=== PATIENT | male | born 1945 | race Caucasian/White ===

== ENCOUNTER 2020-09-19 03:41 | Inpatient (IN) | payer MEDICARE, OTHER, SELFPAY ==
[2020-09-19] VITALS (38 sets, daily range): BP systolic 85–148; BP diastolic 53–91; PULSE 64–83; RESP 6–28; TEMP 35.8–37.1; O2SAT 96–100; BMI 27.2
--- NOTE | ~2020-09-19 | XR_ITS ---
XR chest 1V portable DATE: 09/19/2020 04:18 INDICATION: STEMI TECHNIQUE: Portable AP chest on 09/19/2020 at 0404 hours COMPARISON: 01/11/2006 portable AP chest FINDINGS: Patchy bilateral pulmonary infiltrates are noted. There is a rounded approximately 2.5 cm opacity overlying the left midlung; pulmonary mass lesion is not excluded. Status post sternotomy. Heart size appears normal. Aortic arch calcification. No pleural effusion or pneumothorax. Diffuse osteopenia. IMPRESSION: Patchy bilateral pulmonary infiltrates 2.5 cm mass in the mid left lung field is not excluded. Reviewed, dictated and finalized at location A.
--- NOTE | 2020-09-19 03:49 | ECG_ITS ---
Measurements Intervals [place] Rate: 78 P: 85 GA: 288 QRS: 42 QRSD: 109 T: 95 QT: 375 QTc: 428 Interpretive Statements SINUS RHYTHM WITH FIRST DEGREE AV BLOCK INFERIOR ST ELEVATION MYOCARDIAL INFARCT- ACUTE POSTERIOR INFARCT- ACUTE BASELINE ARTIFACT- V1 ABNORMAL ECG Electronically Signed On 09-19-2020 8:43:36 CDT by Van Tom D.O.
[2020-09-19] MEDS: TICAGRELOR 90 MG TABLET 180 MG PO (04:04)
--- NOTE | 2020-09-19 04:04 | PC.NURSE ---
Sai notified rags laborer and Dr. Patten called for STEMI alert at [id number]
[2020-09-19 04:08] LABS: Basophils Percent Auto 0.5 % (0.2-1.2); Eosinophils Absolute Auto 0.2 K/mm3 (0-0.3); Eosinophils Percent Auto 3.5 % (0-4.4); Hematocrit 47.4 % (42.0-52.0); Hemoglobin 15.5 g/dL (14.0-18.0); Immature Granulocyte Absolute 0.03 K/mm3 (0.00-0.031); Immature Granulocyte Percent A 0.5 % (0-0.5); Lymphocytes Percent Auto 21.6 % (18.3-44.2); Mean Corpuscular HGB Conc 32.7 g/dl (32-36); Mean Corpuscular Hemoglobin 29.5 pg (26-34); Mean Corpuscular Volume 90.1 fl (80-100); Mean Platelet Volume 11.9 fl (7.4-10.4); Monocytes Absolute Auto 0.7 K/mm3 (0.1-0.6); Monocytes Percent Auto 11.1 % (2.6-8.5); Neutrophils Absolute Auto 3.8 K/mm3 (1.3-6.7); Neutrophils Percent Auto 62.8 % (45.5-73.1); Platelet Count Result 159 k/mm3 (150-375); Red Blood Count 5.26 M/mm3 (4.6-6.20); Red Cell Distribution Width 13.1 % (11.5-14.5)
[2020-09-19 04:19] LABS: Prothrombin Time 13.3 Seconds (11.1-14.7)
[2020-09-19 04:20] LABS: Alanine Aminotransferase 24 U/L (4-50); Alkaline Phosphatase 83 U/L (38-126); Anion Gap 2 mmol/L (8-16); Aspartate Amino Transferase 24 U/L (17-59); Bilirubin,Total 0.3 mg/dL (0.2-1.3); Blood Urea Nitrogen 17 mg/dL (9-20); Calcium 9.4 mg/dL (8.4-10.2); Carbon Dioxide 36 mmol/L (22-30); Chloride 103 mmol/L (98-107); Cholesterol 142 mg/dL (0-200); Estimated CRCL calculation 58 ml/min; Estimated Glomerular Filt Rate > 60; Glucose 115 mg/dL (75-110); HDL Direct 43 mg/dL; Partial Thromboplastin Time 25.2 SECONDS (22.3-36.8); Potassium 4.7 mmol/L (3.4-5.0); Sodium 141 mmol/L (137-145); Triglycerides 117 mg/dL (<150)
--- NOTE | 2020-09-19 04:23 | PC.NURSE ---
Patient resting comfortably in room on stretcher. Patient denies any complaints at this time. Patient has SO with him at the bedside. Awaiting cath team arrival.
--- NOTE | 2020-09-19 04:25 | ED.CHESTPAIN ---
HPI - Chest Pain General Chief Complaint: Chest Pain Stated Complaint: chest pain Time Seen by Provider: 09/19/20 03:44 History of Present Illness HPI narrative: Patient is a 75-year-old male who presents ER with sudden onset chest pain. Woke him from sleep around 2 AM. Pressure and was associated with diaphoresis. Reports pain has started radiating into his back and so he opted to come in. Patient has history of coronary artery bypass grafting 2003 as well as mitral valve repair. He is not on any blood thinners or antiplatelet medications. Denies nausea/vomiting/shortness of breath. Reports he did some new exercises today but was not having chest pain at that time. Patient does report new cough starting today with no fevers or chills. He has been fully vaccinated against Covid. Headrig Sawyer is Dr. Calixto Saenz. CV Surgeon is Dr. Reese. Related Data Home Medications Medication Instructions Recorded Confirmed aspirin [Adult Aspirin] 81 mg PO HS 09/19/20 09/19/20 atorvastatin 80 mg PO DAILY 09/19/20 09/19/20 cetirizine [Zyrtec] 10 mg PO DAILY 09/19/20 09/19/20 fluticasone propionate [Flonase] 1 spray INTRANASAL HS 09/19/20 09/19/20 metoprolol succinate 50 mg PO DAILY 09/19/20 09/19/20 Allergies Allergy/AdvReac Type Severity Reaction Status Date / Time Sulfa (Sulfonamide Allergy Mild Unknown Verified 09/19/20 04:04 Antibiotics) Penicillins Allergy Unknown Unknown Verified 09/19/20 04:04 thymerisol Allergy Intermediate Unknown Uncoded 09/19/20 04:00 PCN Allergy Mild Unknown Uncoded 09/19/20 04:00 Review of Systems Review of Systems: All systems reviewed & are unremarkable except as noted in HPI and below Constitutional: Constitutional: Denies fever(s) Comments: diaphoresis Cardiovascular: Cardiovascular: Reports chest pain, Denies rapid heart rate and Reports radiating jaw, neck or arm pain Respiratory: Respiratory: Reports cough, Denies dyspnea and Denies wheezing Gastrointestinal: Gastrointestinal: Denies abdominal pain, Denies nausea and Denies vomiting COUNTS INCLUDE 234 BEDS AT THE [facility] Past Medical History Medical History (Updated 09/19/20 @ 06:55 by Calixto Suarez MD) Coronary artery disease Hypertension Interstitial lung disease Surgical History Surgical History (Updated 09/19/20 @ 04:28 by Calixto Suarez MD) History of mitral valve repair Hx of CABG Social History Social History (Updated 09/19/20 @ 04:29 by Calixto Suarez MD) Smoking status: Never smoker Alcohol intake: current Drinks per week: 2 Substance use: never Gender identity (if verbalized by the patient): Male Spiritual care concerns: No Exam Narrative: Exam Narrative: GENERAL: Well-appearing, well-nourished, and in no acute distress. HEAD: Normocephalic, atraumatic. ENT: Mucous membranes moist. CHEST: Clear to auscultation. No respiratory distress. HEART: Regular rate and rhythm. Normal peripheral pulses. ABDOMEN: Soft, nontender, nondistended. EXTREMITIES: Normal range of motion. No edema. SKIN: Warm, dry, no rash. NEURO: Alert and oriented x3. PSYCH: Normal mood and affect. Course Course Emergency Course: STEMI activated upon EKG being performed. Dr. Patten contacted. Request Brilinta being given in addition to aspirin and heparin. Patient stable. Discussed abnormal chest x-ray with patient. He reports he has some chronic glassy appearance to his lungs. He does not think he has a lung nodule. Discussed this will likely require further work-up but not part of his issue at this time. Reevaluation(s) Reevaluation #1: Cath team at bedside to take patient upstairs. Date: 09/19/20 Time: 04:40 Vital Signs Vital signs: Vital Signs Pulse Rate 78 09/19/20 03:44 Respiratory Rate 16 09/19/20 03:44 Blood Pressure 148/87 H 09/19/20 03:44 Pulse Oximetry 100 09/19/20 03:44 Temperature 97.5 F L 09/19/20 06:06 Pulse Rate 73 09/19/20 06:06 Respiratory Rate 14 09/19/20 06:06 Blood Pressure 109/73
[2020-09-19 04:31] LABS: LDL Cholesterol Direct 71 mg/dL
[2020-09-19 04:38] LABS: Troponin I 0.049 ng/mL (0.000-0.034)
--- NOTE | 2020-09-19 05:57 | ADMGEN ---
This patient, Сергей Carballo, was admitted to Intensive Care Unit-10. Patient/family oriented to hospital policies and general routines including ID bracelet, bed and alarms, visiting hours, pain management, procedures, bathroom and other care routines, personal items, smoking policy, room service/diet, and visiting hours. Information on how to activate the Rapid Response Team has been discussed. Patient/Family are encouraged to report perceived risks to care and to ask questions if they do not understand what they are told or what they should do.
--- NOTE | 2020-09-19 05:59 | ECG_ITS ---
Measurements Intervals [place] Rate: 73 P: -31 [place]: 208 QRS: -3 QRSD: 100 T: -30 QT: 397 QTc: 438 Interpretive Statements SINUS RHYTHM INFERIOR INFARCT, AGE INDETERMINATE BORDERLINE ST ABNORMALITY- HIGH LATERAL LEADS ABNORMAL ECG Electronically Signed On 09-19-2020 17:01:13 CDT by Van Tom D.O.
--- NOTE | 2020-09-19 06:02 | PM.IMHP ---
H&P: HPI History of Present Illness Date/Time: 09/19/20 06:02 Chief Complaint: chest pain Narrative: this is a 75-year-old man on known to me prior to this encounter he came to [facility] in the middle of the night with chest pain that began at about 2:00 a.m. awakening from sleep with a pressure-like central substernal discomfort. Upon arrival to the emergency room he was found to have ECG findings of acute inferior wall injury and emergency angiography and revascularization have been room requested. I am seeing him as he is being prepared for emergency angiography in the cardiac mill laborer. He appears to be relatively comfortable but is reporting moderate retrosternal chest pressure. ECG shows ST elevation inferiorly with reciprocal precordial depression. Apparently he has a history of coronary and valvular heart disease with a previous mitral valve repair and single-vessel bypass at [facility] 15 years ago. I have no records of any of that at the time of this dictation. Review of Systems Review of Systems: ROS unobtainable: Yes unobtainable due to medical condition PMFSH Past Medical History Medical History (Updated 09/19/20 @ 04:31 by Calixto Suarez MD) Coronary artery disease Hypertension Surgical History Surgical History (Updated 09/19/20 @ 04:28 by Calixto Suarez MD) History of mitral valve repair Hx of CABG Social History Social History (Updated 09/19/20 @ 04:29 by Calixto Suarez MD) Smoking status: Never smoker Meds Home Medications and Allergies Allergies Allergy/AdvReac Type Severity Reaction Status Date / Time Sulfa (Sulfonamide Allergy Mild Unknown Verified 09/19/20 04:04 Antibiotics) Penicillins Allergy Unknown Unknown Verified 09/19/20 04:04 thymerisol Allergy Intermediate Unknown Uncoded 09/19/20 04:00 PCN Allergy Mild Unknown Uncoded 09/19/20 04:00 Vital Signs Vital Signs - 24 hr 09/19/20 03:44 09/19/20 03:47 09/19/20 03:48 Temperature Pulse Rate 78 80 77 Respiratory Rate 16 13 14 Blood Pressure 148/87 H 148/87 H Pulse Oximetry 100 100 100 09/19/20 03:58 09/19/20 04:00 09/19/20 04:01 Temperature Pulse Rate 83 82 Respiratory Rate 14 13 Blood Pressure 142/80 H Pulse Oximetry 100 100 100 09/19/20 04:15 09/19/20 04:16 09/19/20 04:46 Temperature 36.4 C Pulse Rate 81 80 78 Respiratory Rate 16 16 13 Blood Pressure 142/87 H 142/87 H Pulse Oximetry 100 99 100 Exam Const: General: uncomfortable Other: Well-developed well-nourished white male [id number] distress with chest pain HENMT: Mouth: Yes moist mucous membranes Eyes: Sclera: sclerae normal Pupils: Equal, round and reactive pupils present Neck: Neck: supple and no JVD Thyroid: thyroid normal Resp: Effort & Inspection: normal respiratory effort Auscultation: clear to auscultation bilaterally Cardio: Rate: regular rate Rhythm: regular rhythm Other: no apparent murmur or gallop GI: GI Palp: Yes Soft to palpation Auscultation: normal bowel sounds Skin: General skin exam: normal color Neuro: Cognition (Neuro): normal cognition Extrem: General: normal to inspection Other: no edema adequate distal perfusion H&P: Results Labs Labs: Short CBC 09/19/20 Range/Units 03:58 WBC 6.0 (4.5-10.0) K/mm3 Hgb 15.5 (14.0-18.0) g/dL Hct 47.4 (42.0-52.0) % Plt Count 159 (150-375) k/mm3 BMP 09/19/20 03:58 Sodium 141 Potassium 4.7 Chloride 103 Carbon Dioxide 36 H BUN 17 Creatinine 1.10 Glucose 115 H Calcium 9.4 Cardiac Enzymes 09/19/20 Range/Units 03:58 Troponin I 0.049 H* (0.000-0.034) ng/mL Liver Function 09/19/20 Range/Units 03:58 Total Bilirubin 0.3 (0.2-1.3) mg/dL AST 24 (17-59) U/L ALT 24 (4-50) U/L Alkaline Phosphatase 83 (38-126) U/L Albumin 4.0 (3.5-5.1) g/dL Assessment and Plan Additional Plan this is a 75-year-old man with coronary artery disease and valvular
--- NOTE | 2020-09-19 06:07 | WPDCARDPROC ---
Cardiac Cath Procedure Note Date of procedure:: 09/19/20 Performing physician:: Wally Patten MD Indication:: acute inferior wall VA Brief clinical history:: this is a 75-year-old man with known coronary disease having undergone bypass grafting and mitral valve repair 15 years ago. Details of that are unavailable to us here. He presents with chest pain and ECG evidence of acute inferior wall VA. Procedure Procedure performed:: Emergency coronary angiography emergency vein graft angiography emergency PCI (BRENDA) to RCA vein graft left ventriculography Sedation/Medication given:: fentanyl 50 mg Versed 2 mg case start time 456 a.m. case end time 5:32 a.m. sedation provided by Lavonne Francis RN, trained observer Access site:: right femoral artery Estimated blood loss:: 15-20 cc Procedure note:: the right femoral triangle was prepped and draped in the usual fashion. Anesthesia was provided with 1% lidocaine infiltrated locally. Using the modified Seldinger technique the femoral artery was punctured and a 6 Sudanese vascular sheath was placed. I then used a 5 Sudanese FL4 catheter to engage and inject the left coronary artery. A 5 Sudanese JR4 catheter was used to inject the right coronary artery. The same catheter was then used to inject saphenous vein graft to the right coronary artery. Following this and review of the cineangiograms PCI of the right coronary vein graft was recommended. Prior to PCI the patient was systemically anticoagulated with Angiomax. He had received aspirin in 180 mg of Brilinta in the emergency department. Following PCI as detailed below a 5 Sudanese angled pigtail catheter was used to document left-sided hemodynamics and to inject the left ventriculogram in the OROURKE projection. After this the sheath was sutured into position was taken to the ICU for post VA PCI recovery. Procedure was uncomplicated he left the farm laborer with no evidence of any complications and no groin hematoma. Findings:: Hemodynamics: Central aortic pressure is 112 over 62 left ventricle 112 over to end-diastolic pressure 14 there is no systolic gradient on pullback across the aortic valve. Left ventricle: The LV is normal in size the inferior wall is severely hypodynamic but not akinetic the anterior wall and apex contract normally the ejection fraction is 50-55%. There is evidence of a mitral valve annuloplasty ring. The left main coronary artery is nicely patent the left anterior descending is medium caliber artery extending down to and around the apex the LAD has mild atherosclerosis proximally but no more than 20-30% stenosis is seen in any projection. There was JOSH 3 flow in the LAD. The circumflex is a moderate caliber artery giving rise to 3 marginal branches. The circumflex proximally is mildly diseased into 1st and 2nd marginal which are free of significant lesions. There is a total occlusion after the 2nd OM with antegrade bridging collaterals filling 3rd OM and a posterior branch after this. This angiographically appears to be a chronic occlusion with antegrade collaterals. The right coronary artery is small in caliber appears to have been dominant to the posterior circulation it is totally occluded in the 2nd portion after a acute marginal RV branches originated injection of saphenous vein graft to the RCA shows it to be a large caliber segment of saphenous vein it is 100% occluded in the midportion shaft of the graft. There is no antegrade flow distal to the occlusion this appears to be a acute thrombotic occlusion. Intervention: The RCA graft was engaged using a 6 Sudanese multipurpose A1 guiding catheter. I used a 0.014 BMW coronary guidewire to probe the occlusion and then advanced the wire into the RCA distal to the distal anastomosis. The total occlusion was then pre-dilated using a 3 x 20 mm emerge PTCA balloon. Following this the graft had excellent flow in it. Immediately after restoring flow th
[2020-09-19] MEDS: SODIUM CHLORIDE 0.9% IV 1,000 ML 125 ML IV CONT (11:01)
[2020-09-19] MEDS: METOPROLOL SUCCINATE EXT REL 25 MG TABCR PO (11:02)
--- NOTE | 2020-09-19 11:43 | WPDCNINT ---
Assessment and Plan Assessment and plan (1) ST elevation (STEMI) myocardial infarction: Code(s): I21.3 - ST elevation (STEMI) myocardial infarction of unspecified site Status: Acute Assessment and Plan: Patient presented with chest pain, radiated to the back along with diaphoresis and shortness of breath -in the ED EKG showed acute inferior myocardial injury - status post PTCA/PCI with BRENDA x2 to the occlusion of the saphenous vein graft, EF 50-55% -cardiology following the patient -continue aspirin, Brilinta, losartan, metoprolol, rosuvastatin (2) Essential hypertension: Code(s): I10 - Essential (primary) hypertension Status: Acute Assessment and Plan: Continue losartan and metoprolol -blood pressures are stable -continue to monitor Additional Plan Discussed with patient updated with his condition and plan of care. Code status: Full code Critical care time spent: 44 minutes This dictation may have been done utilizing a voice recognition system. Attempts have been made to correct errors. However, there may be uncorrected grammatical, spelling, and recognition errors present. Due to a high probability of clinically significant, life threatening deterioration, the patient required my highest level of preparedness to intervene emergently and I personally spent this critical care time directly and personally managing the patient. This critical care time included obtaining a history; examining the patient; pulse oximetry; ordering and review of studies; arranging urgent treatment with development of a management plan; evaluation of patient's response to treatment; frequent reassessment; and discussions with other providers. It was exclusive of separately billable procedures and treating other patients and teaching time. Please see Assessment and Plan section and the rest of the note for further information on patient assessment and treatment Cancer Researcher Consult Note Consult date: 09/19/20 Time Seen: 07:04 Reason for consult: STEMI inferior leads, status post PTCA/PCI with BRENDA x2 to the occlusion of the saphenous vein graft, EF 50-55% HPI: Сергей Carballo is a 75 year old male past medical history of coronary artery disease, CABG history of mitral valve repair, essential hypertension presented the ED middle of the night on 09/19/2020 when he woke up with pressure-like substernal chest pain. In the ER EKG showed acute inferior wall injury. Patient presented with substernal chest pain, radiating to his back, associated with shortness of breath and diaphoresis. Patient was taken to the cardiac radiographer cardiac catheterization which showed occlusion of the saphenous vein graft status post PCI with BRENDA x2 to the saphenous vein graft. EF 50-55%. Patient did have significant sinus bradycardia at the moment of reperfusion which was resolved with atropine patient also noted to have chronic total occlusion of the circumflex between the 2nd and 3rd marginal branches with antegrade bridging collaterals into the OM3. Severe hypokinesia of the inferior posterior segment. Patient was transferred to the ICU for further management Patient seen and examined the ICU, denies any chest pain, shortness of breath, abdominal pain, nausea, vomiting. She patient is hemodynamically stable, good O2 sats. Review of Systems Review of Systems: All systems reviewed & are unremarkable except as noted in HPI and below PMFSH Past Medical History Medical History (Updated 09/19/20 @ 12:17 by Briana Xie MD) Coronary artery disease Hypertension Interstitial lung disease Surgical History Surgical History (Updated 09/19/20 @ 04:28 by Calixto Suarez MD) History of mitral valve repair Hx of CABG Family History Family History (Updated 09/19/20 @ 07:57 by Kiarra Stallings RN) Father Acute myocardial infarction Mother Lung disease Sibling Gaucher disease Daughter Von Willebrand disease Social History Social History (Updated
[2020-09-19] MEDS: TICAGRELOR 90 MG TABLET PO (14:51)
[2020-09-19] MEDS: LOSARTAN POTASSIUM 12.5 MG TABLET PO (14:51)
[2020-09-19] MEDS: BISMUTH SUBSALICYLATE 262 MG CHEWABLE TABLET 524 MG PO (16:42)
[2020-09-19] MEDS: ROSUVASTATIN 10 MG TABLET 20 MG PO (20:00)
[2020-09-19] MEDS: FAMOTIDINE 20 MG TABLET PO (20:00)
[2020-09-19] MEDS: ASPIRIN 81 MG CHEWABLE TABLET PO (20:00)
[2020-09-20] VITALS (17 sets, daily range): BP systolic 88–135; BP diastolic 55–81; PULSE 64–84; RESP 12–24; TEMP 36.3–36.6; O2SAT 96–100
[2020-09-20 04:40] LABS: Basophils Percent Auto 0.1 % (0.2-1.2); Eosinophils Absolute Auto 0.1 K/mm3 (0-0.3); Eosinophils Percent Auto 1.6 % (0-4.4); Immature Granulocyte Absolute 0.04 K/mm3 (0.00-0.031); Immature Granulocyte Percent A 0.5 % (0-0.5); Lymphocytes Absolute Auto 0.71 K/mm3 (0.9-3.2); Lymphocytes Percent Auto 9.5 % (18.3-44.2); Mean Corpuscular HGB Conc 33.3 g/dl (32-36); Mean Corpuscular Hemoglobin 29.7 pg (26-34); Mean Corpuscular Volume 89.2 fl (80-100); Mean Platelet Volume 12.2 fl (7.4-10.4); Monocytes Absolute Auto 0.7 K/mm3 (0.1-0.6); Monocytes Percent Auto 9.8 % (2.6-8.5); Neutrophils Absolute Auto 5.9 K/mm3 (1.3-6.7); Neutrophils Percent Auto 78.5 % (45.5-73.1); Platelet Count Result 126 k/mm3 (150-375); Red Blood Count 4.37 M/mm3 (4.6-6.20); Red Cell Distribution Width 13.2 % (11.5-14.5); White Blood Count 7.5 K/mm3 (4.5-10.0)
[2020-09-20 05:01] LABS: Anion Gap 0 mmol/L (8-16); Blood Urea Nitrogen 16 mg/dL (9-20); Calcium 8.5 mg/dL (8.4-10.2); Carbon Dioxide 28 mmol/L (22-30); Chloride 106 mmol/L (98-107); Estimated CRCL calculation 70 ml/min; Estimated Glomerular Filt Rate > 60; Glucose 111 mg/dL (75-110); Magnesium 1.8 mg/dL (1.6-2.3); Phosphorus 3.3 mg/dL (2.5-4.5); Potassium 3.7 mmol/L (3.4-5.0); Sodium 134 mmol/L (137-145)
--- NOTE | 2020-09-20 05:11 | ECG_ITS ---
Measurements Intervals [place] Rate: 81 P: -53 [place]: 167 QRS: -23 QRSD: 102 T: -66 QT: 401 QTc: 468 Interpretive Statements SINUS RHYTHM EARLY PRECORDIAL R/S TRANSITION INFERIOR INFARCT, PROBABLY RECENT ABNORMAL ECG Electronically Signed On 09-20-2020 9:20:40 CDT by Van Tom D.O.
[2020-09-20] MEDS: TICAGRELOR 90 MG TABLET PO ×2 (07:23→17:52)
[2020-09-20] MEDS: METOPROLOL SUCCINATE EXT REL 25 MG TABCR PO (08:48)
[2020-09-20] MEDS: FAMOTIDINE 20 MG TABLET PO ×2 (08:48→21:25)
[2020-09-20] MEDS: LOSARTAN POTASSIUM 12.5 MG TABLET PO (08:48)
--- NOTE | 2020-09-20 12:37 | PM.PNCARD ---
Progress Note: A&P Additional Plan 75-year-old man with: Coronary artery disease status post single-vessel bypass grafting and mitral valve repair in the remote past at [facility]. Presented here yesterday with acute inferior wall infarction due to total occlusion of his saphenous vein graft to the RCA. This was treated successfully with very nice angiographic result using 2 Orsiro drug-eluting stents restoring excellent flow in excellent angiographic appearance to the graft. He is doing well today and is asymptomatic. He can be moved IMU and anticipate discharge tomorrow barring any problems. Wally Patten MD [facility] Subjective Date/time seen: Date of service: 09/20/20 12:37 Interval history: Follow-up visit in this 75-year-old man with: Acute inferior wall myocardial infarction resulting from abrupt occlusion of saphenous vein graft to the RCA which was placed 15 years ago. Patient also had repair of mitral valve at that time. He feels well this morning offers no complaints no chest pain no dyspnea. Patient is very appreciative of the care that he received. Exam Const: General: comfortable and no acute distress HENMT: Mouth: Yes moist mucous membranes Eyes: Sclera: sclerae normal Pupils: Equal, round and reactive pupils present Neck: Neck: supple and no JVD Resp: Effort & Inspection: normal respiratory effort Auscultation: clear to auscultation bilaterally Cardio: Rate: regular rate Rhythm: regular rhythm Other: No murmur no gallop GI: GI Palp: Yes Soft to palpation Auscultation: normal bowel sounds Skin: General skin exam: normal color Neuro: Cognition (Neuro): normal cognition Extrem: General: normal to inspection Objective Data Vital Signs Vital Signs: Vital Signs - 24 hr 09/19/20 14:01 09/19/20 14:05 09/19/20 16:00 Temperature 37.1 C Pulse Rate 68 69 76 Respiratory Rate 23 H 16 Blood Pressure 105/61 112/69 Pulse Oximetry 99 100 09/19/20 17:48 09/19/20 18:09 09/19/20 20:00 Temperature 36.6 C Pulse Rate 74 72 Respiratory Rate 20 15 Blood Pressure 85/53 L 92/55 L 95/55 L Pulse Oximetry 98 99 09/19/20 22:00 09/20/20 00:00 09/20/20 02:00 Temperature 36.4 C Pulse Rate 71 64 66 Respiratory Rate 22 H 14 18 Blood Pressure 107/56 L 94/55 L 88/56 L Pulse Oximetry 96 96 98 09/20/20 04:00 09/20/20 06:00 09/20/20 08:00 Temperature 36.4 C 36.4 C L Pulse Rate 65 68 76 Respiratory Rate 18 20 16 Blood Pressure 101/63 132/81 112/63 Pulse Oximetry 98 96 97 09/20/20 08:48 09/20/20 10:00 09/20/20 10:02 Temperature Pulse Rate 75 79 76 Respiratory Rate 24 H Blood Pressure 118/63 Pulse Oximetry Intake/Output Intake/Output: Intake & Output 09/17/20 09/18/20 09/19/20 09/20/20 23:59 23:59 23:59 23:59 Intake Total 1740 790 Output Total 200 450 Balance 1540 340 Meds/Results Medications: Active Medications Generic Name Dose Route Start Last Admin Trade Name Freq PRN Reason Stop Dose Admin Alprazolam 0.25 mg 09/19/20 06:56 Alprazolam (*Crx) 0.25 Mg Tablet PO TID PRN Anxiety Aspirin 81 mg 09/19/20 21:00 09/19/20 20:00 Aspirin 81 Mg Chewable Tablet PO 81 mg HS HALEIGH Administration Bismuth Subsalicylate 524 mg 09/19/20 16:00 09/19/20 16:42 Bismuth Subsalicylate 262 Mg Chewable Tablet PO 524 mg Q4H PRN Administration Indigestion Famotidine 20 mg 09/19/20 21:00 09/20/20 08:48 Famotidine 20 Mg Tablet PO 20 mg Q12HR [place]IGH Administration Losartan Potassium 12.5 mg 09/19/20 12:45 09/20/20 08:48 Losartan Potassium 12.5 Mg Tablet PO 12.5 mg QAM [place] Administration Metoprolol Succinate 25 mg 09/19/20 09:00 09/20/20 08:48 Metoprolol Succinate Ext Rel 25 Mg Tabcr PO 25 mg QAM [place] Administration Nitroglycerin 0.4 mg 09/19/20 05:59 Nitroglycerin Sl 0.4 Mg Tablet SUBLINGUAL Q5MIN PRN Chest Pain Rosuvastatin Calcium 20 mg 09/19/20 21:00 09/19/20 20:00 Rosu
--- NOTE | 2020-09-20 12:58 | WPDINTPN ---
Progress Note: A&P Assessment and Plan (1) ST elevation (STEMI) myocardial infarction: Code(s): I21.3 - ST elevation (STEMI) myocardial infarction of unspecified site Status: Acute Assessment and Plan: Patient presented with chest pain, radiated to the back along with diaphoresis and shortness of breath -in the ED EKG showed acute inferior myocardial injury - status post PTCA/PCI with BRENDA x2 to the occlusion of the saphenous vein graft, EF 50-55% -cardiology following the patient -continue aspirin, Brilinta, losartan, metoprolol, rosuvastatin (2) Essential hypertension: Code(s): I10 - Essential (primary) hypertension Status: Acute Assessment and Plan: Continue losartan and metoprolol -blood pressures are stable -continue to monitor Additional Plan Chest x-ray on 09/19/2020 showed 2.5 cm mass in the mid left lung field, discussed with cardiology will obtain CT scan of the chest without contrast to evaluate. Discussed with patient updated with his condition and plan of care. Code status: Full code Critical care time spent: 31 minutes This dictation may have been done utilizing a voice recognition system. Attempts have been made to correct errors. However, there may be uncorrected grammatical, spelling, and recognition errors present. Due to a high probability of clinically significant, life threatening deterioration, the patient required my highest level of preparedness to intervene emergently and I personally spent this critical care time directly and personally managing the patient. This critical care time included obtaining a history; examining the patient; pulse oximetry; ordering and review of studies; arranging urgent treatment with development of a management plan; evaluation of patient's response to treatment; frequent reassessment; and discussions with other providers. It was exclusive of separately billable procedures and treating other patients and teaching time. Please see Assessment and Plan section and the rest of the note for further information on patient assessment and treatment Subjective Date/time seen: 09/20/20 12:58 Interval history: Reason for consult: STEMI inferior leads, status post PTCA/PCI with BRENDA x2 to the occlusion of the saphenous vein graft, EF 50-55% 09/20/2020: Patient seen and examined the ICU, denies any chest pain, shortness of breath, nausea, vomiting. No arrhythmia is noted overnight. Hemodynamically stable, adequate urine output, afebrile Review of Systems Review of Systems: All systems reviewed & are unremarkable except as noted in HPI and below Exam Const: General: comfortable and no acute distress HENMT: Mouth: Yes moist mucous membranes Eyes: Sclera: sclerae normal Pupils: Equal, round and reactive pupils present Neck: Neck: supple Resp: Effort & Inspection: normal respiratory effort Auscultation: clear to auscultation bilaterally Cardio: Rate: regular rate Rhythm: regular rhythm GI: Inspection: non-distended GI Palp: Yes Soft to palpation and No Tenderness to palpation present (GI) Auscultation: normal bowel sounds : Male General Exam: Yes normal external exam and Yes erythema Urinary Catheter: Urinary Catheter: urine clear Skin: General skin exam: normal color and no rashes or lesions noted Neuro: Cranial nerves: Yes Equal, round and reactive pupils present Other: Patient is awake, alert, oriented, follows simple commands and answers questions appropriately Extrem: General: normal to inspection, no edema and no pedal edema Other: The sheath is still in place in the right groin when I examined this patient -no evidence of ecchymoses or hematoma at the right groin site Psych: Mental Status: mental status grossly normal Affect: normal affect Objective Data Vital Signs Vital Signs: Vital Signs - 24 hr 09/19/20 14:01 09/19/20 14:05 09/19/20 16:00 Temperature 98.8 F Pulse Rate 68 69 76 Respiratory Rate 23 H 16
--- NOTE | 2020-09-20 14:14 | PC.NURSE ---
This patient, Сергей Carballo, was received from [ ICU 10] on 09/20/20 at 1410. Patient/family oriented to unit policies and routines. Report received from emma cox
--- NOTE | 2020-09-20 14:29 | PC.NURSE ---
This patient, Сергей Carballo, [facility] at 1410. Personal belongings sent with patient. Report given to Rupinder CHAUHAN. Appropriate documentation sent with patient.
[2020-09-20] MEDS: ROSUVASTATIN 10 MG TABLET 20 MG PO (21:25)
[2020-09-20] MEDS: ASPIRIN 81 MG CHEWABLE TABLET PO (21:25)
[2020-09-21] VITALS (7 sets, daily range): BP systolic 124–127; BP diastolic 61–78; PULSE 73–95; RESP 18–20; TEMP 35.8–36.3; O2SAT 97–100
[2020-09-21] MEDS: TICAGRELOR 90 MG TABLET PO (04:42)
[2020-09-21] MEDS: FAMOTIDINE 20 MG TABLET PO (08:48)
[2020-09-21] MEDS: METOPROLOL SUCCINATE EXT REL 25 MG TABCR PO (08:48)
[2020-09-21] MEDS: LOSARTAN POTASSIUM 12.5 MG TABLET PO (08:48)
--- NOTE | 2020-09-21 09:13 | PM.DS ---
DS: Admitting Diagnosis Admitting Diagnosis Admitting Diagnosis: Acute ST-elevation MN DS: Discharge Diagnosis Discharge Diagnosis (1) ST elevation (STEMI) myocardial infarction: Code(s): I21.3 - ST elevation (STEMI) myocardial infarction of unspecified site Status: Acute DS: Summary Hospital Course Reason for hospitalization: Acute inferior wall MN Hospital Course: This is a 75-year-old man with previous history of coronary disease who presented [facility] with chest pain and ECG evidence of acute inferior wall ST-elevation MN. He had a history of single-vessel bypass grafting and mitral valve repair in 2003 at [facility]. 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 The saphenous vein graft was obviously the culprit for the presentation. In the left coronary artery he had a distal chronic occlusion of the circumflex prior to the 3rd marginal branch with antegrade bridging collaterals which also appeared to be a chronic lesion. He underwent emergency successful PCI of the saphenous vein graft deploying two Orsiro 3.5 mm drug-eluting stents in that graft with a excellent angiographic result with evangelical of JOSH 3 flow into the distal RCA. He recovered from the event uneventfully he had a moderate troponin rise had no arrhythmias or other complications of his event. He is followed chronically by his frame aligner and primary care physician at [facility] and will follow with them following discharge. The patient's chest x-ray at [facility] was interpreted as some concern regarding a left lung nodule. A CT scan was recommended by the hospitalist and was scheduled for this morning. The patient elected to not have that exam done here at [place]. He provided history that he had a lung nodule followed at [facility] in the past and serial CT scans did not show it to be of any concern. He will bring this up for further review by his physicians at that hospital and following discharge. His discharge medicines are as detailed below. As he is actively followed at [facility] follow-up in our office will not be scheduled. Status at Discharge Functional status at discharge: independent ambulation Overall status at discharge: patient is back to baseline Time Spent with Patient Time attestation: Total time spent providing and/or coordinating discharge services: Time spent: Less than 30 minutes Exam Const: General: comfortable and no acute distress HENMT: Mouth: Yes moist mucous membranes Eyes: Sclera: sclerae normal Pupils: Equal, round and reactive pupils present Neck: Neck: supple and no JVD Thyroid: thyroid normal Resp: Effort & Inspection: normal respiratory effort Auscultation: clear to auscultation bilaterally Cardio: Rate: regular rate Rhythm: regular rhythm Other: S4 gallop noted at the apex, no murmur GI: GI Palp: Yes Soft to palpation Auscultation: normal bowel sounds Skin: General skin exam: normal color Neuro: General: gait normal Extrem: General: normal to inspection Discharge Plan Discharge Attending physician on discharge: Wally Patten Consulting providers: Briana Xie Discharging Clinician: Wally Patten Patient Disposition: Home, Self-Care Activity: as tolerated Diet: heart healthy Discharge Instructions: Eileen no lifting more than 20 lb for the next 5 days. No driving until next week. Follow-up with PCP and frame aligner at [facility] Patient Instructions: Antibiotic Form Stand Alone Forms: General Discharge Information Follow-up/Referrals: LUZ ELENA,BARRY Nelson M.D. [Primary Care Provider] - Discharge Medications: New nitroglycerin [Nitrostat] 0.4 mg Tablet, Sublingual 0.4 mg sublingual Q5MIN PRN (Reason: Chest Pain) Qty: 30 RF: 2 meto
== END 2020-09-21 10:48 | disposition home or self-care (01) | DRG 247 ==
LOC: ANHED 04:41 → ANHICU 06:15 → ANHIMU 09-21 09:18 → ANHICU 09-25 10:39 → ANHIMU 09-25 10:39
PROVIDERS: Internal Medicine; Admitting Provider Specialist; Emergency Provider Emergency Medicine; PCP Internal Medicine; Visit Provider Specialist
PROC: 4A023N7 Measurement of Cardiac Sampling and Pressure, Left Heart, Percutaneous Approach (ICD-10-PCS; CPT 93459; principal; 2020-09-19 04:30)
PROC: 027035Z Dilation of Coronary Artery, One Artery with Two Drug-eluting Intraluminal Devices, Percutaneous Approach (ICD-10-PCS; 2020-09-19 04:30)
DX: I21.19 ST elevation (STEMI) myocardial infarction involving other coronary artery of inferior wall (principal); I25.810 Atherosclerosis of coronary artery bypass graft(s) without angina pectoris; J84.9 Interstitial pulmonary disease, unspecified; I25.10 Atherosclerotic heart disease of native coronary artery without angina pectoris; I10 Essential (primary) hypertension; Z79.82 Long term (current) use of aspirin; Z79.899 Other long term (current) drug therapy; Z98.890 Other specified postprocedural states
CPT/HCPCS: 36415; 71045; 80048; 80053; 80061; 83735; 84100; 84484; 85025; 85610; 85730; 86850; 86900; 86901; 93005; 93459; 99285; A9270; C1725; C1769; C1874; C1887; C1894; C9606; J0461; J1644; J2250; J3010; J7030; J7040

== ENCOUNTER 2020-12-24 16:30 | Outpatient (RCR) | payer MEDICARE, OTHER, SELFPAY ==
[2020-10-09 15:41] VITALS: PULSE 77
== END 2020-12-24 17:45 | disposition home or self-care (01) ==
LOC: ANHCPREHAB 16:30
PROVIDERS: Visit Provider Internal Medicine Cardiovascular Disease
DX: Z95.5 Presence of coronary angioplasty implant and graft (principal); I25.2 Old myocardial infarction
CPT/HCPCS: 93798